=== PATIENT | male | born 1965 | race Caucasian/White ===

== ENCOUNTER 2019-11-01 10:58 | Observation (INO) | payer MEDICARE ==
[~2019-11-01] VITALS: Ht 160 cm; Wt 69.4 kg
[2019-11-01] MEDS ORDERED: GLUCOPHAGE1000 MG PO (11:08)
[2019-11-01] MEDS ORDERED: GLUCOTROL ER2.5 MG (11:08)
[2019-11-01] MEDS ORDERED: HUMALOG 30100 UNITS/ (11:09)
[2019-11-01] MEDS ORDERED: COREG 3.1253.125 MG (11:09)
[2019-11-01 11:33] LABS: BASOPHILS 0.8 % (0-2); EOSINOPHILS 1.1 % (0-7); HEMATOCRIT 45.7 % (42.0-54.0); HEMOGLOBIN 15.5 g/dL (13.5-17.5); IMMATURE GRANULOCYTES 0.3 % (0-5); LYMPHOCYTES 40.6 % (15-50); MCHC 33.9 g/dL (31.0-37.0); MCV 88.6 fL (80.0-100.0); MEAN PLATELET VOLUME 10.2 fL (7.4-10.4); MONOCYTES 6.7 % (2-11); NEUTROPHILS 50.5 % (40-80); PLATELET COUNT 279 10x3/uL (130-400); RBC 5.16 10x6/uL (4.20-6.10); RDW 12.1 % (11.5-14.5); WBC 6.6 10x3/uL (4.8-10.8)
[2019-11-01 11:50] LABS: ALBUMIN 3.9 g/dL (3.4-5.0); ALKALINE PHOSPHATASE 111 U/L (30-120); ALT (SGPT) 31 U/L (10-68); BILIRUBIN - TOTAL 0.35 mg/dL (0.2-1.3); CALCIUM 8.9 mg/dL (8.5-10.1); CARBON DIOXIDE 26.7 mmol/L (21.0-32.0); CHLORIDE - SERUM 95 mmol/L (98-107); CREATININE - SERUM 0.8 mg/dL (0.6-1.3); MAGNESIUM - SERUM 1.6 mg/dL (1.8-2.4); POTASSIUM - SERUM 4.5 mmol/L (3.5-5.1); SODIUM 129 mmol/L (136-145); UREA NITROGEN 11 mg/dL (7-18); eGFR NON AFRICAN AMERICAN > 90 mL/min (90-120)
[2019-11-01 11:53] LABS: CALC OSMOLALITY 282 mosm/kg (275-300)
[2019-11-01 11:56] LABS: GLUCOSE 551 mg/dL (74-106)
[2019-11-01 12:36] LABS: APPEARANCE CLEAR (CLEAR); BILIRUBIN NEGATIVE (NEGATIVE); COLOR STRAW (YELLOW); GLUCOSE 500 mg/dL (NEGATIVE); KETONE NEGATIVE (NEGATIVE); NITRITE NEGATIVE (NEGATIVE); PROTEIN NEGATIVE (NEGATIVE); SPECIFIC GRAVITY 1.005 (1.005-1.020); UROBILINOGEN NORMAL (NORMAL)
--- NOTE | 2019-11-01 12:40 | NUR ---
NS BOLUS STOPPED AT 1240
--- NOTE | 2019-11-01 13:31 | NUR ---
POC CBG 154 AT THIS TIME. PT AMBULATORY TO BATHROOM.
[2019-11-01 13:58] VITALS: BP 106/50
--- NOTE | 2019-11-01 14:57 | MORECARE ---
CASE MANAGEMENT DISCHARGE SUMMARY PATIENT: YURIY MUÑOZ UNIT: [id number] ADM DATE: 11/01/19 AGE: 53 : 67 SEX: M ROOM/BED: D.2234 AUTHOR: JALYN CARVER PHYSICIAN: REFERRING PHYSICIAN: ROHAN NARANJO MD DATE OF SERVICE: 11/01/19 Discharge Plan Patient Name: YURIY MUÑOZ Facility: [facility]:[place] : 1965 Planned Disposition: Home Anticipated Discharge Date: Discharge Date: Expected LOS: Initial Reviewer: [email or web address] Initial Review Date: 11/01/2019 Generated: 11/01/19 3:56 pm Patient Name: YURIY MUÑOZ Page 16341 at 0807 All edits/amendments must be made on the electronic document DICTATION DATE: 11/01/19 1456 RELIGIOUS HEALER: SHASHANK 11/01/19 1456 RPT#: [id number] DC DATE: STATUS: ADM IN [facility] [address] [place] [address] END OF REPORT
--- NOTE | 2019-11-01 15:08 | MORECARE ---
CASE MANAGEMENT DISCHARGE SUMMARY PATIENT: YURIY MUÑOZ UNIT: [id number] ADM DATE: 11/01/19 AGE: 53 : 67 SEX: M ROOM/BED: D.2234 AUTHOR: MEHULDOC PHYSICIAN: REFERRING PHYSICIAN: ROHAN NARANJO MD DATE OF SERVICE: 11/01/19 Discharge Plan Patient Name: YURIY MUÑOZ Facility: [facility]:[place] : 1965 Planned Disposition: Home Anticipated Discharge Date: Discharge Date: Expected LOS: Initial Reviewer: [email or web address] Initial Review Date: 11/01/2019 Generated: 11/01/19 4:08 pm DCP- Discharge Planning Updated by [email or web address]: Aura Avila on 11/01/19 2:[address] Patient Name: YURIY MUÑOZ Admission Status: ER Accout number: [id number] Admission Date: 11-01-2019 : 1965 Admission Diagnosis: Attending: ROHAN NARANJO Current LOS: 1 Anticipated DC Date: Planned Disposition: Home Primary Insurance: [facility] MEDICARE SOLUTIONS Discharge Planning Comments: CM met with patient to discuss discharge planning/needs, he is alone in the room. He states he has no contact lens cutter. He does states that Alejandra from [facility] will take him home, unless it's tomorrow then he will need to have a taxi. He states the [employer] bus does not come to [facility]. He states typically if he has someone from his mcc drive him to the pharmacy and wherever he needs to go or he walks. I asked if his insurance pays for his diabetic meds and he states that they do, but typically he may have a small copay. He states his copay can be as high as 60 dollars a month. I asked if he would be able to get his diabetes medications at discharge with his insurance and he states yes. He states they do pay for Novolog/lantus, victoza, metformin and glipizide. CM will continue to follow and assist with discharge planning/needs. Dry Lumber Grader: Aura Avila DCPIA - Discharge Planning Initial Assessment Updated by [id number]: Aura Avila on 11/01/19 3:00 pm * Is the patient Alert and Oriented? Yes * How many steps to enter\exit or inside your home? Ramp/0 * PCP Dr. Naranjo - first visit will be December 01 * Pharmacy [facility] * Preadmission Environment [facility] * Facility Name [facility] * ADLs Independent * Equipment None * List name and contact numbers for known caregivers / representatives who currently or will assist patient after discharge: Alejandra from [facility] - [phone] * Verbal permission to speak to the caregivers and representatives has been obtained from the patient. Yes * Community resources currently utilized None * Additional services required to return to the preadmission environment? No * Can the patient safely return to the preadmission environment? Yes * Has this patient been hospitalized within the prior 30 days at any hospital? No Last DP export: 11/01/19 1:57 p Patient Name: YURIY MUÑOZ Page 54593 at 1508 All edits/amendments must be made on the electronic document DICTATION DATE: 11/01/19 1508 MACHINE RUG CLEANER: SHASHANK 11/01/19 1508 RPT#: [id number] DC DATE: STATUS: ADM IN [facility] [address] [place] [address] END OF REPORT
--- NOTE | 2019-11-01 15:10 | NUR ---
RECIEVED FROM THE ER. IV TO RIGHT HAND PATENT NO SIGNS OF DISTRESS. DENIES ANY FURTHER NEED AT THIS TIME. CALL LIGHT IN REACH. BED LOW POSITION. NO FAMILY AT BEDSIDE AT THIS TIME
[2019-11-01 19:30] VITALS: BP 100/54
[2019-11-02 00:30] VITALS: BP 98/60
--- NOTE | 2019-11-02 02:36 | NUR ---
PATIENT RESTING QUIETLY. BANDAGE TO LEFT FOOT REMAINS DRY AND INTACT. CALL LIGHT AND URINAL WITHIN REACH. WILL CONTINUE TO MONITOR
--- NOTE | 2019-11-02 02:38 | NUR ---
PATIENT RESTING QUIETLY, NO SIGNS AND SYMPTOMS OF HYPO/HYPERGLYCEMIA. PATIENT ATE A TURKEY SANDWICH EARLIER. WILL CONTINUE TO MONITOR
[2019-11-02 05:00] VITALS: BP 128/78
[2019-11-02 06:19] LABS: BASOPHILS 0.6 % (0-2); EOSINOPHILS 1.4 % (0-7); HEMATOCRIT 42.3 % (42.0-54.0); HEMOGLOBIN 14.4 g/dL (13.5-17.5); IMMATURE GRANULOCYTES 0.4 % (0-5); LYMPHOCYTES 44.9 % (15-50); MCH 30.1 pg (26.0-34.0); MCV 88.5 fL (80.0-100.0); MEAN PLATELET VOLUME 9.8 fL (7.4-10.4); MONOCYTES 4.9 % (2-11); NEUTROPHILS 47.8 % (40-80); PLATELET COUNT 292 10x3/uL (130-400); RBC 4.78 10x6/uL (4.20-6.10); RDW 12.1 % (11.5-14.5)
[2019-11-02 06:57] LABS: ALBUMIN 3.6 g/dL (3.4-5.0); ALKALINE PHOSPHATASE 94 U/L (30-120); ALT (SGPT) 31 U/L (10-68); BILIRUBIN - TOTAL 0.35 mg/dL (0.2-1.3); CALCIUM 8.8 mg/dL (8.5-10.1); CARBON DIOXIDE 27.1 mmol/L (21.0-32.0); CHLORIDE - SERUM 102 mmol/L (98-107); CREATININE - SERUM 0.6 mg/dL (0.6-1.3); POTASSIUM - SERUM 4.1 mmol/L (3.5-5.1); PROTEIN - SERUM 6.8 g/dL (6.4-8.2); SODIUM 136 mmol/L (136-145); eGFR NON AFRICAN AMERICAN > 90 mL/min (90-120)
[2019-11-02 06:58] LABS: CALC OSMOLALITY 279 mosm/kg (275-300); GLUCOSE 206 mg/dL (74-106); UREA NITROGEN 17 mg/dL (7-18)
[2019-11-02 08:37] VITALS: BP 135/99
--- NOTE | 2019-11-02 10:29 | NUR ---
UP IN HALLS, NO DISTRESS NOTED, SL IN PLACE, CONT TO MONITOR SUGARS
[2019-11-02 11:07] VITALS: Ht 160 cm; Wt 69.4 kg
[2019-11-02 13:13] VITALS: BP 126/57
--- NOTE | 2019-11-02 14:30 | NUR ---
IV REMOVED, TIP INTACT, AT BEDSIDE, REVIEWED DC INSTRUCTIONS, VOICED NO CONCERNS, TAKEN FROM HOSPITAL PER W/C
--- NOTE | 2019-11-02 16:07 | NUR ---
PT UP WALKING IN THE HALLS, AGITATED WITH FAMILY TODAY, ENC PT TO REST,
[2019-11-02 16:18] VITALS: BP 130/79
--- NOTE | 2019-11-02 16:30 | MORECARE ---
CASE MANAGEMENT DISCHARGE SUMMARY PATIENT: DUSTY MUÑOZ UNIT: [id number] ADM DATE: 11/01/19 AGE: 53 : 67 SEX: M ROOM/BED: D.2234 AUTHOR: MEHULDOC PHYSICIAN: REFERRING PHYSICIAN: ROHAN NARANJO MD DATE OF SERVICE: 11/02/19 Discharge Plan Patient Name: DUSTY MUÑOZ Facility: [facility]:[place] : 1965 Planned Disposition: Home Anticipated Discharge Date: Discharge Date: Expected LOS: Initial Reviewer: [email or web address] Initial Review Date: 11/01/2019 Generated: 11/02/19 5:30 pm DCP- Discharge Planning Updated by [email or web address]: Aura Avila on 11/01/19 2:[address] Patient Name: DUSTY MUÑOZ Admission Status: ER Accout number: [id number] Admission Date: 11-01-2019 : 1965 Admission Diagnosis: Attending: ROHAN NARANJO Current LOS: 1 Anticipated DC Date: Planned Disposition: Home Primary Insurance: [facility] MEDICARE SOLUTIONS Discharge Planning Comments: CM met with patient to discuss discharge planning/needs, he is alone in the room. He states he has no contact lens inspector. He does states that Alejandra from [facility] will take him home, unless it's tomorrow then he will need to have a taxi. He states the [employer] bus does not come to [facility]. He states typically if he has someone from his prison drive him to the pharmacy and wherever he needs to go or he walks. I asked if his insurance pays for his diabetic meds and he states that they do, but typically he may have a small copay. He states his copay can be as high as 60 dollars a month. I asked if he would be able to get his diabetes medications at discharge with his insurance and he states yes. He states they do pay for Novolog/lantus, victoza, metformin and glipizide. CM will continue to follow and assist with discharge planning/needs. Floor Attendant: Aura Avila DCPIA - Discharge Planning Initial Assessment Updated by [email or web address]: Aura Avila on 11/01/19 3:00 pm * Is the patient Alert and Oriented? Yes * How many steps to enter\exit or inside your home? Ramp/0 * PCP Dr. Naranjo - first visit will be December 01 * Pharmacy [facility] * Preadmission Environment [facility] * Facility Name [facility] * ADLs Independent * Equipment None * List name and contact numbers for known caregivers / representatives who currently or will assist patient after discharge: Alejandra from [facility] - [phone] * Verbal permission to speak to the caregivers and representatives has been obtained from the patient. Yes * Community resources currently utilized None * Additional services required to return to the preadmission environment? No * Can the patient safely return to the preadmission environment? Yes * Has this patient been hospitalized within the prior 30 days at any hospital? No External Providers External Provider: OTHER-OTHER Next Contact Date: Service Request Date: Service Type: Resolution: Reviewer: Comments: Coverage Notice Reviewer: [email or web address] Randy Avila Notice Issued Date-Time: 11/01/2019 15:07 Notice Type: Medicare Outpatient Observation Notice Notice Delivered To: Patient Relationship to Patient: Self Rental Management Trainee Name: Delivery Method: HAND - Hand Delivered Alejandra Days: Prior Verbal Notification: Recipient Understood Notice: Yes Recipient Signature: Yes Med Rec Note Co-signed by Attending: Coverage Notice Comment: YIN delivered, signed, given, copy placed in MR Reviewer: [id number] Randy Aiken Notice Issued Date-Time: 11/02/2019 13:26 Notice Type: Medicare Outpatient Observation Notice Notice Delivered To: Patient Relationship to Patient: Self Rental Management Trainee Name: Dusty Muñoz Delivery Method: HAND - Hand Delivered Alejandra Days: Prior Verbal Notification: Recipient Understood Notice: Yes Recipient Signature: Yes Med Rec Note Co-signed by Attending: Coverage Notice Comment: YIN delivered to and signed by patient. Original given to patient and one placed on the chart. Last DP export: 11/01/19 2:08 p Patient Name: DUSTY MUÑOZ Page 67980 at 1630 All edits/amendments must be made on the electronic document DICTATION DATE: 11/02/19 1630 VENEER PRESS OPERATOR: SHASHANK 11/02/19 1630 RPT#: [id number] DC DATE: STATUS: ADM IN [facility] [address] [facility] [place] [address] END OF REPORT
[2019-11-02] MEDS ORDERED: HUMALOG 30100 UNITS/ SC (19:19)
[2019-11-02] MEDS ORDERED: Lantus Insulin SC (19:20)
[2019-11-02] MEDS ORDERED: LEVEMIR IN100 UNITS/ SC (19:21)
[2019-11-02 19:58] VITALS: BP 137/83
--- NOTE | 2019-11-02 20:12 | NUR ---
PATIENT DISCHARGED HOME VIA TAXI. PERSONAL BELONGINGS AND DISCHARGE INSTRUCTIONS GIVEN WITH PRESCRIPTIONS. STATES UNDERSTANDING.
--- NOTE | 2019-11-03 15:05 | MORECARE ---
CASE MANAGEMENT DISCHARGE SUMMARY PATIENT: DUSTY MUÑOZ UNIT: [id number] ADM DATE: 11/01/19 AGE: 53 : 67 SEX: M ROOM/BED: D.2234 AUTHOR: MEHUL,DOC PHYSICIAN: REFERRING PHYSICIAN: ROHAN NARANJO MD DATE OF SERVICE: 11/03/19 Discharge Plan Patient Name: DUSTY MÑUOZ Facility: [facility]:[place] : 1965 Planned Disposition: Home Anticipated Discharge Date: Discharge Date: 11/02/2019 Expected LOS: Initial Reviewer: [email or web address] Initial Review Date: 11/01/2019 Generated: 11/03/19 4:04 pm DCP- Discharge Planning Updated by [email or web address]: Aura Avila on 11/01/19 2:[address] Patient Name: DUSTY MUÑOZ Admission Status: ER Accout number: [id number] Admission Date: 11-01-2019 : 1965 Admission Diagnosis: Attending: ROHAN NARANJO Current LOS: 1 Anticipated DC Date: Planned Disposition: Home Primary Insurance: [facility] MEDICARE SOLUTIONS Discharge Planning Comments: CM met with patient to discuss discharge planning/needs, he is alone in the room. He states he has no personnel technician. He does states that Alejandra from [facility] will take him home, unless it's tomorrow then he will need to have a taxi. He states the [employer] bus does not come to [facility]. He states typically if he has someone from his custodial drive him to the pharmacy and wherever he needs to go or he walks. I asked if his insurance pays for his diabetic meds and he states that they do, but typically he may have a small copay. He states his copay can be as high as 60 dollars a month. I asked if he would be able to get his diabetes medications at discharge with his insurance and he states yes. He states they do pay for Novolog/lantus, victoza, metformin and glipizide. CM will continue to follow and assist with discharge planning/needs. Stamping Die Maker: Aura Avila DCPIA - Discharge Planning Initial Assessment Updated by [email or web address]: Aura Avila on 11/01/19 3:00 pm * Is the patient Alert and Oriented? Yes * How many steps to enter\exit or inside your home? Ramp/0 * PCP Dr. Naranjo - first visit will be December 01 * Pharmacy [facility] * Preadmission Environment Assisted * Facility [facility] * ADLs Independent * Equipment None * List name and contact numbers for known caregivers / representatives who currently or will assist patient after discharge: Alejandra from [facility] - [phone] * Verbal permission to speak to the caregivers and representatives has been obtained from the patient. Yes * Community resources currently utilized None * Additional services required to return to the preadmission environment? No * Can the patient safely return to the preadmission environment? Yes * Has this patient been hospitalized within the prior 30 days at any hospital? No Coverage Notice Reviewer: [id number] Randy Avila Notice Issued Date-Time: 11/01/2019 15:07 Notice Type: Medicare Outpatient Observation Notice Notice Delivered To: Patient Relationship to Patient: Self Professor Of Oceanography Name: Delivery Method: HAND - Hand Delivered Alejandra Days: Prior Verbal Notification: Recipient Understood Notice: Yes Recipient Signature: Yes Med Rec Note Co-signed by Attending: Coverage Notice Comment: YIN delivered, signed, given, copy placed in MR Reviewer: [id number] - Tiffanie Aiken Notice Issued Date-Time: 11/02/2019 13:26 Notice Type: Medicare Outpatient Observation Notice Notice Delivered To: Patient Relationship to Patient: Self Professor Of Oceanography Name: Dusty Muñoz Delivery Method: HAND - Hand Delivered Alejandra Days: Prior Verbal Notification: Recipient Understood Notice: Yes Recipient Signature: Yes Med Rec Note Co-signed by Attending: Coverage Notice Comment: YIN delivered to and signed by patient. Original given to patient and one placed on the chart. Last DP export: 11/02/19 3:30 p Patient Name: DUSTY MUÑOZ Page 42879 at 1505 All edits/amendments must be made on the electronic document DICTATION DATE: 11/03/19 1504 JOURNEYMAN PIPEFITTER: SHASHANK 11/03/19 1504 RPT#: [id number] DC DATE:11/02/19 STATUS: DIS IN [facility] [id number] [place] [address] END OF REPORT
== END 2019-11-02 20:17 | disposition home or self-care (01) ==
LOC: D.ER 10:58 → OBSVTIME 11:56 → D.MS 11:56 → D.SDCHOLD 15:00 → D.MS 11-02 20:17
PROVIDERS: Emergency Medicine; Family Medicine; ADMIT Legal Medicine; ATTEND Legal Medicine
DX: E11.65 Type 2 diabetes mellitus with hyperglycemia (principal); I10 Essential (primary) hypertension; F17.200 Nicotine dependence, unspecified, uncomplicated; Z91.14 Patient's other noncompliance with medication regimen

== ENCOUNTER 2019-12-10 19:26 | Inpatient (IN) | payer MEDICARE, MEDICAID ==
[~2019-12-10] VITALS: Ht 160 cm; Wt 74.8 kg
[~2019-12-10 19:26] MED LIST: COREG 3.1253.125 MG; GLUCOPHAGE1000 MG PO; GLUCOTROL ER2.5 MG; HUMALOG 30100 UNITS/; HUMALOG 30100 UNITS/ SC; LEVEMIR IN100 UNITS/ SC; Lantus Insulin SC
--- NOTE | 2019-12-10 19:59 | NUR ---
FSBS 397
[2019-12-10 20:13] LABS: NITRITE NEGATIVE (NEGATIVE); SPECIFIC GRAVITY 1.015 (1.005-1.020)
[2019-12-10 20:14] LABS: BILIRUBIN NEGATIVE (NEGATIVE); GLUCOSE 1000 mg/dL (NEGATIVE); KETONE NEGATIVE (NEGATIVE); UROBILINOGEN NORMAL (NORMAL)
[2019-12-10 20:24] LABS: BASOPHILS 0.5 % (0-2); HEMATOCRIT 43.4 % (42.0-54.0); HEMOGLOBIN 14.6 g/dL (13.5-17.5); IMMATURE GRANULOCYTES 0.4 % (0-5); LYMPHOCYTES 39.8 % (15-50); MCH 30.1 pg (26.0-34.0); MCHC 33.6 g/dL (31.0-37.0); MCV 89.5 fL (80.0-100.0); MEAN PLATELET VOLUME 9.1 fL (7.4-10.4); MONOCYTES 7.5 % (2-11); NEUTROPHILS 50.8 % (40-80); PLATELET COUNT 287 10x3/uL (130-400); RBC 4.85 10x6/uL (4.20-6.10); WBC 10.4 10x3/uL (4.8-10.8)
[2019-12-10 20:48] LABS: ALBUMIN 3.6 g/dL (3.4-5.0); ALKALINE PHOSPHATASE 121 U/L (30-120); ALT (SGPT) 28 U/L (10-68); AMYLASE - SERUM 68 U/L (25-115); BILIRUBIN - TOTAL 0.27 mg/dL (0.2-1.3); CALCIUM 8.9 mg/dL (8.5-10.1); CARBON DIOXIDE 25.7 mmol/L (21.0-32.0); CREATININE - SERUM 0.8 mg/dL (0.6-1.3); LIPASE 1000 U/L (73-393); POTASSIUM - SERUM 4.3 mmol/L (3.5-5.1); PROTEIN - SERUM 7.4 g/dL (6.4-8.2); SODIUM 130 mmol/L (136-145); UREA NITROGEN 15 mg/dL (7-18); eGFR NON AFRICAN AMERICAN > 90 mL/min (90-120)
[2019-12-10 20:52] LABS: CALC OSMOLALITY 281 mosm/kg (275-300); CHLORIDE - SERUM 97 mmol/L (98-107); TROPONIN-I < 0.017 ng/mL (0.000-0.060)
[2019-12-10 20:55] LABS: GLUCOSE 457 mg/dL (74-106)
[2019-12-11] VITALS (10 sets, daily range): BP systolic 104–153; BP diastolic 62–92; Ht 160 cm; Wt 74.8 kg
--- NOTE | 2019-12-11 | NUR ---
RECEIVED TO FLOOR VIA WHEELCHAIR, ACCOMPANIED BY ER NURSE. A&O X 4. AMBULATES INDEPENDENTLY. VS STABLE. REPORTS PAIN HAS DECREASED TO 7/10. INFORMED OF NPO STATUS. NO NEEDS VOICED AT THIS TIME, REFUSES SCDs. WILL CONTINUE TO MONITOR.
[2019-12-11 05:08] LABS: APTT 33.9 SECONDS (22.8-39.4); INR 1.03 (0.85-1.17); PROTIME 13.5 SECONDS (11.6-15.0)
[2019-12-11 05:18] LABS: ALBUMIN 3.2 g/dL (3.4-5.0); ALKALINE PHOSPHATASE 99 U/L (30-120); ALT (SGPT) 25 U/L (10-68); AMYLASE - SERUM 66 U/L (25-115); CALC OSMOLALITY 276 mosm/kg (275-300); CARBON DIOXIDE 26.7 mmol/L (21.0-32.0); CHLORIDE - SERUM 101 mmol/L (98-107); CREATININE - SERUM 0.6 mg/dL (0.6-1.3); MAGNESIUM - SERUM 1.6 mg/dL (1.8-2.4); PHOSPHOROUS 3.8 mg/dL (2.5-4.9); POTASSIUM - SERUM 3.9 mmol/L (3.5-5.1); PROTEIN - SERUM 6.5 g/dL (6.4-8.2); SODIUM 135 mmol/L (136-145); UREA NITROGEN 12 mg/dL (7-18); eGFR NON AFRICAN AMERICAN > 90 mL/min (90-120)
[2019-12-11 05:19] LABS: D-DIMER-QUANTITATIVE < 0.27 ug/mLFEU (0.20-0.54)
[2019-12-11 05:26] LABS: GLUCOSE 226 mg/dL (74-106); HEMATOCRIT 41.7 % (42.0-54.0); HEMOGLOBIN 14.3 g/dL (13.5-17.5); LIPASE 741 U/L (73-393); MCH 30.4 pg (26.0-34.0); MCHC 34.3 g/dL (31.0-37.0); MCV 88.7 fL (80.0-100.0); MEAN PLATELET VOLUME 9.1 fL (7.4-10.4); PLATELET COUNT 259 10x3/uL (130-400); RDW 12.1 % (11.5-14.5); WBC 8.2 10x3/uL (4.8-10.8)
--- NOTE | 2019-12-11 07:51 | NUR ---
ASKING FOR A PHONE CHARHOUSE WORKER. DENIES ANY OTHER NEEDS. ALERT, TALKING.
[2019-12-11 08:02] LABS: LYMPHOCYTES 42 % (15-50); MONOCYTES 8 % (2-11); NEUTROPHILS 49 % (40-80); PLATELET ESTIMATE NORMAL
--- NOTE | 2019-12-11 18:07 | NUR ---
HE HAS BEEN WALKING IN THE HALLWAY THIS AFTERNOON. HE SAYS HE NEEDS TO LEAVE TOMORROW- REGARDING HIS NEW APPARTMENT- DOES NOT KNOW IF HE WANTS TO GO THERE OR NOT. HE WAS STARTED ON CLEAR TO FULL DIET TODAY. HE HAS TOLERATED BOTH DIETS.
--- NOTE | 2019-12-11 19:15 | NUR ---
PATIENT AMBULATING AROUND HALLS WITH NO S/S OF DISTRESS. PATIENT DENIES NEEDS AT THIS TIME. WILL CONTINUE TO MONITOR.
--- NOTE | 2019-12-11 19:38 | MORECARE ---
CASE MANAGEMENT DISCHARGE SUMMARY PATIENT: YURIY MUÑOZ UNIT: [id number] ADM DATE: 12/10/19 AGE: 54 : 67 SEX: M ROOM/BED: D.2236 AUTHOR: JALYN CARVER PHYSICIAN: REFERRING PHYSICIAN: DOTTY BATEMAN MD DATE OF SERVICE: 12/11/19 Discharge Plan Patient Name: YURIY MUÑOZ [facility] : 1965 Planned Disposition: Home Anticipated Discharge Date: Discharge Date: Expected LOS: Initial Reviewer: [email or web address] Initial Review Date: 12/10/2019 Generated: 12/11/19 8:38 pm DCPIA - Discharge Planning Initial Assessment Updated by [email or web address]: Sailaja Schuler on 12/11/19 7:36 pm * Is the patient Alert and Oriented? Yes * How many steps to enter\exit or inside your home? ramp * PCP NO PCP * Pharmacy [facility] * Preadmission Environment Intermediate * Facility Name [facility] * ADLs Independent * Other Equipment INSULIN AND NEEDLES * List name and contact numbers for known caregivers / representatives who currently or will assist patient after discharge: NONE * Verbal permission to speak to the caregivers and representatives has been obtained from the patient. N/A * Community resources currently utilized None * Additional services required to return to the preadmission environment? No * Can the patient safely return to the preadmission environment? Yes * Has this patient been hospitalized within the prior 30 days at any hospital? No Patient Name: YURIY MUÑOZ Page 14761 at 1938 All edits/amendments must be made on the electronic document DICTATION DATE: 12/11/191937 FIELD SERVICE ENGINEER: SHASHANK 12/11/191937 RPT#: [id number] DC DATE: STATUS: ADM IN [facility] [address] [place] [address] END OF REPORT
--- NOTE | 2019-12-11 19:45 | MORECARE ---
CASE MANAGEMENT DISCHARGE SUMMARY PATIENT: YURIY MUÑOZ UNIT: [id number] ADM DATE: 12/10/19 AGE: 54 : 67 SEX: M ROOM/BED: D.2236 AUTHOR: MEHUL,DOC PHYSICIAN: REFERRING PHYSICIAN: DOTTY BATEMAN MD DATE OF SERVICE: 12/11/19 Discharge Plan Patient Name: YURIY MUÑOZ Facility: [facility]:[place] : 1965 Planned Disposition: Home Anticipated Discharge Date: Discharge Date: Expected LOS: Initial Reviewer: [email or web address] Initial Review Date: 12/10/2019 Generated: 12/11/19 8:44 pm Comments DCP- Discharge Planning Updated by [id number]: Sailaja Schuler on 12/11/19 6:[address] Patient Name: YURIY MUÑOZ Admission Status: ER Accout number: [id number] Admission Date: 12-10-2019 : 1965 Admission Diagnosis:ACUTE PANCREATITIS WITHOUT NECROSIS OR INFECTION, UNSP Attending: SHAKIRA Current LOS: 1 Anticipated DC Date: Planned Disposition: Home Primary Insurance: [facility] MEDICARE SOLUTIONS Discharge Planning Comments: CM met with patient to complete initial dc planning assessment. CM educated patient on the CM role and verbal consent given by patient to complete assessment. Patient lives at [facility] currently but states he doesn't want to go back there. He states that he is trying to get an apartment and plans to move there very soon. CM discussed availability of home health, rehab services, and medical equipment. Patient states that he can obtain his diabetic medications without any problems. Patient denied known discharge needs at this time. CM will continue to follow and will assist as needed with dc plans/needs. Irrigating Pump Operator: Sailaja Schuler DCPIA - Discharge Planning Initial Assessment Updated by [email or web address]: Sailaja Schuler on 12/11/19 7:36 pm * Is the patient Alert and Oriented? Yes * How many steps to enter\exit or inside your home? ramp * PCP NO PCP * Pharmacy [facility] * Preadmission Environment [facility] * Facility Name [facility] * ADLs Independent * Other Equipment INSULIN AND NEEDLES * List name and contact numbers for known caregivers / representatives who currently or will assist patient after discharge: NONE * Verbal permission to speak to the caregivers and representatives has been obtained from the patient. N/A * Community resources currently utilized None * Additional services required to return to the preadmission environment? No * Can the patient safely return to the preadmission environment? Yes * Has this patient been hospitalized within the prior 30 days at any hospital? No Last DP export: 12/11/19 6:38 pm Patient Name: YURIY MUÑOZ Page 94189 at 1945 All edits/amendments must be made on the electronic document DICTATION DATE: 12/11/191943 GASOLINE POWER SHOVEL OPERATOR: SHASHNAK 12/11/191943 RPT#: [id number] DC DATE: STATUS: ADM IN [facility] [address] [place] [address] END OF REPORT
[2019-12-12 05:35] LABS: HEMATOCRIT 40.2 % (42.0-54.0); HEMOGLOBIN 13.3 g/dL (13.5-17.5); MCHC 33.1 g/dL (31.0-37.0); MCV 90.5 fL (80.0-100.0); MEAN PLATELET VOLUME 9.5 fL (7.4-10.4); PLATELET COUNT 276 10x3/uL (130-400); RBC 4.44 10x6/uL (4.20-6.10); RDW 12.3 % (11.5-14.5); WBC 7.7 10x3/uL (4.8-10.8)
[2019-12-12 05:52] LABS: CALC OSMOLALITY 277 mosm/kg (275-300); CARBON DIOXIDE 24.5 mmol/L (21.0-32.0); CHLORIDE - SERUM 105 mmol/L (98-107); CREATININE - SERUM 0.6 mg/dL (0.6-1.3); GLUCOSE 164 mg/dL (74-106); LIPASE 366 U/L (73-393); MAGNESIUM - SERUM 1.8 mg/dL (1.8-2.4); PHOSPHOROUS 3.8 mg/dL (2.5-4.9); SODIUM 138 mmol/L (136-145); UREA NITROGEN 7 mg/dL (7-18); eGFR NON AFRICAN AMERICAN > 90 mL/min (90-120)
[2019-12-12 06:25] LABS: EOSINOPHILS 4 % (0-7); LYMPHOCYTES 49 % (15-50); MONOCYTES 2 % (2-11); NEUTROPHILS 45 % (40-80); PLATELET ESTIMATE NORMAL
--- NOTE | 2019-12-12 07:05 | NUR ---
ALERT AND ORIENTED. NO C/O PAIN. NO S/S OF ACUTE DISTRESS NOTED. IV TO RIGHT AC, NS INFUSING @ 125ML/HR. SITE PATENT WITHOUT REDNESS OR SWELLING. ON TELEMETRY 58 SB. DENIES ANY NEEDS AT THIS TIME. PATIENT STATES HE WANTS TO GO HOME TODAY. CALL LIGHT IN REACH. WILL CONTINUE TO MONITOR.
[2019-12-12 07:57] VITALS: BP 144/66
[2019-12-12] MEDS ORDERED: Nicoderm [PBKC] TRANSDERM (10:47)
--- NOTE | 2019-12-12 13:22 | NUR ---
DISCHARGED PATIENT HOME. WENT OVER DISCHARGE INSTRUCTIONS WITH PATIENT, VERBALIZED UNDERSTANDING. DISCONTINUED IV, CATHETER TIP INTACT. DENIES ANYTHING FURTHER.
--- NOTE | 2019-12-12 13:43 | MORECARE ---
CASE MANAGEMENT DISCHARGE SUMMARY PATIENT: YURIY MUÑOZ UNIT: [id number] ADM DATE: 12/10/19 AGE: 54 : 67 SEX: M ROOM/BED: D.2236 AUTHOR: MEHUL,DOC PHYSICIAN: REFERRING PHYSICIAN: DOTTY BATEMAN MD DATE OF SERVICE: 12/12/19 Discharge Plan Patient Name: YURIY MUÑOZ Facility: [facility]:[place] : 1965 Planned Disposition: Home Anticipated Discharge Date: Discharge Date: 12/12/2019 Expected LOS: Initial Reviewer: [email or web address] Initial Review Date: 12/10/2019 Generated: 12/12/19 2:42 pm Comments DCP- Discharge Planning Updated by [email or web address]: Sailaja Schuler on 12/12/19 12:[address] Patient Name: YURIY MUÑOZ Encounter No: [id number] : 1965 Primary Insurance: [facility] MEDICARE SOLUTIONS Anticipated DC Date: Planned Disposition: Home External Planned Provider: : DCP follow-up note: Patient and family in agreement with discharge plan. Patient will discharge back to [facility] for now . Case management will follow and assist as needed. Sailaja Schuler DCP- Discharge Planning Updated by [email or web address]: Sailaja Schuler on 12/11/19 6:[address] Patient Name: YURIY MUÑOZ Admission Status: ER Accout number: [id number] Admission Date: 12-10-2019 : 1965 Admission Diagnosis:ACUTE PANCREATITIS WITHOUT NECROSIS OR INFECTION, UNSP Attending: SHAKIRA Current LOS: 1 Anticipated DC Date: Planned Disposition: Home Primary Insurance: [facility] MEDICARE SOLUTIONS Discharge Planning Comments: CM met with patient to complete initial dc planning assessment. CM educated patient on the CM role and verbal consent given by patient to complete assessment. Patient lives at [facility] currently but states he doesn't want to go back there. He states that he is trying to get an apartment and plans to move there very soon. CM discussed availability of home health, rehab services, and medical equipment. Patient states that he can obtain his diabetic medications without any problems. Patient denied known discharge needs at this time. CM will continue to follow and will assist as needed with dc plans/needs. School Lunch Monitor: Sailaja Schuler DCPIA - Discharge Planning Initial Assessment Updated by [id number]: aSilaja Schuler on 12/11/19 7:36 pm * Is the patient Alert and Oriented? Yes * How many steps to enter\exit or inside your home? ramp * PCP NO PCP * Pharmacy [facility] * Preadmission Environment [facility] * Facility Name [facility] * ADLs Independent * Other Equipment INSULIN AND NEEDLES * List name and contact numbers for known caregivers / representatives who currently or will assist patient after discharge: NONE * Verbal permission to speak to the caregivers and representatives has been obtained from the patient. N/A * Community resources currently utilized None * Additional services required to return to the preadmission environment? No * Can the patient safely return to the preadmission environment? Yes * Has this patient been hospitalized within the prior 30 days at any hospital? No Last DP export: 12/11/19 6:45 pm Patient Name: YURIY MUÑOZ Page 82041 at 1343 All edits/amendments must be made on the electronic document DICTATION DATE: 12/12/19 1342 DRY SAND MOLDER: SHASHANK 12/12/19 1342 RPT#: [id number] DC DATE:12/12/19 STATUS: DIS IN [facility] [address] [place] [address] END OF REPORT
== END 2019-12-12 13:23 | disposition home or self-care (01) | DRG 439 ==
LOC: D.ER 19:26 → D.MS 22:11
PROVIDERS: Family Medicine; ADMIT Family Medicine; ATTEND Family Medicine
DX: K85.90 Acute pancreatitis without necrosis or infection, unspecified (principal); F17.203 Nicotine dependence unspecified, with withdrawal; Z91.14 Patient's other noncompliance with medication regimen; E78.5 Hyperlipidemia, unspecified; I25.10 Atherosclerotic heart disease of native coronary artery without angina pectoris; I11.0 Hypertensive heart disease with heart failure; I50.9 Heart failure, unspecified; E11.40 Type 2 diabetes mellitus with diabetic neuropathy, unspecified; G47.33 Obstructive sleep apnea (adult) (pediatric); K21.9 Gastro-esophageal reflux disease without esophagitis; F31.9 Bipolar disorder, unspecified; E11.65 Type 2 diabetes mellitus with hyperglycemia; J44.9 Chronic obstructive pulmonary disease, unspecified; E11.51 Type 2 diabetes mellitus with diabetic peripheral angiopathy without gangrene; R16.0 Hepatomegaly, not elsewhere classified; R91.1 Solitary pulmonary nodule

== ENCOUNTER 2020-04-29 00:22 | Inpatient (IN) | payer MEDICARE, MEDICAID ==
[~2020-04-29] VITALS: Ht 160 cm; Wt 79.4 kg
[2020-04-29] VITALS (9 sets, daily range): BP systolic 89–145; BP diastolic 45–84
--- NOTE | ~2020-04-29 | HEMODYNAMI ---
PATIENT:YURIY MUÑOZ MEDICAL RECORD: [id number] : 67 LOCATION:D.MS Rios2224 ADMISSION DATE: 04/29/20 Generatedon:04/30/202016:44 Patient name: YURIY MUÑOZ Patient #: [id number] SSN: [id number] : 1965 Date of study: 04/30/2020 Page: Of Hemodynamic Procedure Report Patient Data Patient Demographics Procedure consent was obtained First Name: YURIY Gender: Male Last Name: TONI : 1965 Patient #: [id number] Age: 54 year(s) Race: SSN: [id number] Additional ID: [id number] Contact details Address: [address] [place] [address] [address] State: [place] City: [facility] Zip code: [address] Admission Admission Data Admission Date: 04/29/2020 Admission Time: 17:03 Arrival Date: 04/30/2020 Arrival Time: 0:00 Admit Source: Other Insurance Payor: Medicare Room #: D.2224 [facility] #: [id number] Height (in.): 63 BSA: 1.83 (m2) Height (cm.): 160.02 BMI: 31.06 (kg/m2) Weight (lbs.): 175.36 Weight (kg.): 79.54 Lab Results Lab Result Date: 04/30/2020 Lab Result Time: 0:00 Biochemistry Name Units Result Min Max BUN mg/dl 11 --(-*--)-- 7 18 CK-MB ng/ml 1.1 --(-*--)-- 0 3.6 Creatinine mg/dl 0.7 --(*---)-- 0.6 1.3 eGFR ml/min 90 --(*---)-- 90 120 NONAFRICAN Troponin l ng/ml 0.017 --(-*--)-- 0 0.06 CBC Name Units Result Min Max Hematocrit % 40.7 -*(----)-- 42 54 Hemoglobin g/dl 13.9 --(*---)-- 13.5 17.5 Procedure Procedure Types Cath Procedure Diagnostic Procedure [facility] w/Coronaries Sedation Charges Moderate Sedation up to 15 minutes Peripheral Cath Diagnostic Procedure Health Promoter Peripheral Procedures Four Vessel Arteriogram Procedure Description Procedure Date Procedure Date: 04/30/2020 Procedure Start Time: 16:30 Procedure End Time: 16:40 Procedure Staff Name Function Nando Sierra MD Performing Physician Leila Watson RT Monitor Lexus Valdes RT Scrub Shannan Nielson RN Nurse Procedure Data Cath Procedure Fluoroscopy Diagnostic fluoroscopy Total fluoroscopy Time: 2.2 time: 2.2 min min Diagnostic fluoroscopy Total fluoroscopy dose: 585 dose: 585 mGy mGy Contrast Material Contrast Material Type Amount (ml) Isovue 300 99 Entry Location Entry Primary Successful Side Size Upsize Upsize Entry Closure Succes sful Closure Location (Fr) 1 (Fr) 2 (Fr) Remarks Device Remarks Femoral Right 5 Fr Exoseal artery Estimated blood loss: 5 ml Diagnostic catheters Device Type Used For End Catheter Placement MULTIPACK JL 4.0 5Fr Left Coronary catheter Angiography MULTIPACK 3DRC 5Fr Right Coronary catheter Angiography MULTIPACK Pigtail 5 Fr LV Angiography catheter Procedure Complications No complications Procedure Medications Medication Administration Route Dosage Oxygen etCO2 Nasal cannula 2 l/min Lidocaine 2% added to field 20 Heparin Flush Bag added to field 2 bags (1000units/500ml NS) 0.9% NaCl I.V. 100 ml/hr Versed I.V. 2 mg Versed I.V. 2 mg Fentanyl I.V. 50 mcg Fentanyl I.V. 50 mcg Hemodynamics Rest BSA: 1.83 (m2) HGB: 13.9 (g/dl) O2 Consumption: Estimated: 211.4 (ml/min) O2 Con sumption indexed: Estimated:115.52 (ml/min/m) Heart Rate: 61 (bpm) Pressure Samples Time Site Value (mmHg) Purpose Heart Use Rate(bpm) 16:37 LV 92/5,8 Snapshot 76 Gradients Valve Time Site Site Mean SEP/DFP Peak To Heart Use 1 2 (mmHg) (sec/min) Peak Rate (mmHg) (bpm) Aortic 16:37 LV AO 74 Snapshots Pre Cath Intra NCS Post Cath Vital Signs Time Heart Resp SPO2 etCO2 NIBP Rhythm Pain Sedation Rate (ipm) (%) (mmHg) (mmHg) Status Level (bpm) 16:10:22 68 15 99 0 118/72(96) NSR 0 (11) 10(A) , No pain 16:14:36 67 11 100 33.5 118/65(96) NSR 0 (11) 10(A) , No pain 16:18:48 65 12 99 34.3 118/65(82) NSR 0 (11) 10(A) , No pain 16:22:56 72 19 99 38.7 108/77(86) NSR 0 (11) 10(A) , No pain 16:27:08 70 11 98 44 109/62(88) NSR 0 (11) 9(A) , No pain 16:31:20 69 15 97 43.3 106/59(76) NSR 0 (11) 9(A) , No pain 16:35:30 69 14 97 43.3 105/60(78) NSR 0 (11) 9(A) , No pain 16:39:40 72 15 97 42.5 115/69(82) NSR 0 (11) 10(A) , No pain Medications Time Medication Route Dose Verified Delivered Reason Notes Eff ectiveness by by 16:17:10 Oxygen etCO2 2 Nando Chinmayie used for Nasal l/min [facility] campus manager cannula 16:17:18 Lidocaine 2% added 20ml Nando Nando for local to vial [facility] anesthetic field MD JARAMILLO 16:17:25 Heparin Flush added 2 Nando Nando used for Bag to bags [facility] procedure (1000units/500ml field MD JARAMILLO NS) 16:18:16 0.9% NaCl I.V. 100 Nando Buffie Per ml/hr [facility] Chau Nielson RN physician 16:18:24 Versed I.V. 2 mg Nando Chinmayie for RigoChau Nielson RN sedation 16:19:12 Fentanyl I.V. [address] for mcg [address] Chau Nielson RN sedation 16:28:08 Versed I.V. 2 mg [address] for [facility]au Nielson RN sedation 16:28:18 Fentanyl I.V. 50 [address] for mcg [address] Chau Nielson RN sedation Procedure Log Time Note 15:38:13 Informed consent obtained and on chart 15:38:31 Diagnostic Cath Status : Urgent 15:38:47 Arrival Date: 04/30/2020 12:00:00 AM 15:38:47 Admit Source: Other 15:38:50 Insurance Payor : Medicare 15:39:09 Patient Height : 63 inches 15:39:14 Patient Weight : 175.36 lbs 15:40:20 Lab Result : CK-MB 1.1 ng/ml 15:40:20 Lab Result : Creatinine 0.7 mg/dl 15:40:20 Lab Result : BUN 11 mg/dl 15:40:20 Lab Result : Hemoglobin 13.9 g/dl 15:40:20 Lab Result : eGFR NONAFRICAN 90 ml/min 15:40:20 Lab Result : Troponin l 0.017 ng/ml 15:40:20 Lab Result : Hematocrit 40.7 % 15:40:36 Procedure Status Urgent Heart Cath (IP). 15:40:41 Time tracking: Regular hours (M-F 7:00 - 5:00) 15:40:46 Plan of Care:Hemodynamics will remain stable., Cardiac rhythm will remain stable., Comfort level will be maintained., Respiratory function will remain adequate., Patient/ family verbilizes understanding of procedure., Procedure tolerated without complication., Recovers from procedure without complications.. 15:40:49 Lexus Valdes RT(R) sent for patient. Start room use. 15:58:37 Risk of Mortality: 0.1 15:58:40 Risk of blood transfusion: 0.1 15:58:44 Risk of VANESSA: 0.7 15:58:49 1) 90+ Normal kidney functon but urine findings or structural abnormalities or genetic trait point to kidney disease. 15:58:54 Maximum allowable contrast dose (3.7 X eGFR X 0.75)249 ml. 16:00:46 Patient received from Med II to CCL 2 Alert and oriented. Tansferred to table in Supine position. 16:00:48 Warm blankets applied, and danny hugger turned on for patient comfort. 16:00:48 Correct patient and procedure confirmed by team. 16:00:49 ECG and BP/O2 sat monitors applied to patient. 16:09:15 Baseline sample Acquired. 16:09:15 Vital chart was started 16:09:18 Rhythm: sinus rhythm 16:09:21 Full Disclosure recording started 16:09:41 H&P Date Dictated: 04/30/2020 New H&P dictated by physician.. 16:09:43 Pre-procedure instructions explained to patient. 16:09:43 Pre-op teaching completed and patient verbalized understanding. 16:09:48 Family unavailable. 16:09:49 Patient NPO since Midnight. 16:09:51 Is the patient allergic to Iodine/contrast media? No. 16:09:52 Was the patient premedicated? Yes 16:09:56 Is patient on blood thinner?No 16:09:58 Patient diabetic? Yes. 16:13:06 If diabetic: On Metformin? No 16:13:08 Previous problem with sedation/anesthesia? No ? 16:13:10 Snore? Yes 16:13:12 Sleep apnea? No 16:13:13 Deviated septum? No 16:13:14 Opens mouth fully? Yes 16:13:15 Sticks out tongue? Yes 16:13:21 Airway obstruction? Yes COPD 16:13:30 Dentures? No ? 16:13:34 Pre procedure: right dorsailis pedis pulse 2+ Normal; easily identifiable; not easily obliterated 16:13:36 Pre procedure: left dorsailis pedis pulse 2+ Normal; easily identifiable; not easily obliterated 16:13:38 Patient pain scale 0/10 ?. 16:13:52 IV patent on arrival in right forearm with 0.9% NaCl at [facility]. 16:13:55 Lab results completed and on chart. 16:14:07 Right groin area was prepped with chlora-prep and draped in sterile fashion 16:14:08 Alarms reviewed by R. N. 16:14:09 Sharps counted by scrub and verified by R.N. 16:14:11 Physician arrived 16:14:11 --------ALL STOP TIME OUT------ 16:14:11 Final Timeout: patient, procedure, and site verified with staff and physician. All members of the team are in agreement. 16:14:13 Right groin site verified by team. 16:14:16 Fire Safety Assessment: A--An alcohol-based skin anteseptic being used preoperatively., C--Open oxygen or nitrous oxide is being used., D--An ESU, laser, or fiber-optic light is being used. 16:14:19 Physical assessment completed. ASA score P 3 - A patient with severe systemic disease as per Nando Sierra MD. 16:14:25 Sedation plan: IV Moderate Sedation Medication:Versed, Fentanyl 16:15:38 Procedure started. 16:17:10 Oxygen 2 l/min etCO2 Nasal cannula was administered by Shannan Nielson RN; used for procedure; Verbal order read back and verified. 16:17:18 Lidocaine 2% 20ml vial added to field was administered by Nando Sierra MD; for local anesthetic; Verbal order read back and verified. 16:17:25 Heparin Flush Bag (1000units/500ml NS) 2 bags added to field was administered by Nando Sierra MD; used for procedure; Verbal order read back and verified. 16:18:16 0.9% NaCl 100 ml/hr I.V. was administered by Shannan Nielson RN; Per physician; Verbal order read back and verified. 16:18:24 Versed 2 mg I.V. was administered by Shannan Nielson RN; for sedation; Verbal order read back and verified. 16:19:12 Fentanyl 50 mcg I.V. was administered by Shannan Nielson RN; for sedation; Verbal order read back and verified. 16:21:01 Zero performed for pressure channel P1 16:28:08 Versed 2 mg I.V. was administered by Shannan Nielson RN; for sedation; Verbal order read back and verified. 16:28:18 Fentanyl 50 mcg I.V. was administered by Shannan Nielson RN; for sedation; Verbal order read back and verified. 16:30:28 Local anesthetic to right femoral artery with Lidocaine 2% by Nando Sierra MD.INITIAL ACCESS ONLY 16:30:36 A 5 Fr sheath was inserted into the Right Femoral artery 16:31:41 Use device set Femoral Dx 16:31:42 ACIST Syringe (01240) opened to sterile field. 16:31:43 Bag Decanter () opened to sterile field. 16:31:43 Medline Cath Pack ([id number]) opened to sterile field. 16:31:44 ACIST Hand Control (72587) opened to sterile field. 16:31:45 ACIST Manifold (01837) opened to sterile field. 16:31:45 DIAGNOSTIC Multipack 5Fr catheter set ([id number]) opened to sterile field. 16:31:46 Tegaderm 4 x 4 (1626W) opened to sterile field. 16:31:47 SHEATH 5FR [place] ([id number]) opened to sterile field. 16:31:47 EMERALD Guide Wire (908-535) opened to sterile field. 16:31:58 A MULTIPACK JL 4.0 5Fr catheter was advanced over the wire and used for Left Coronary Angiography. 16:32:31 LCA angiography performed. 16:33:26 Catheter removed. 16:33:33 A MULTIPACK 3DRC 5Fr catheter was advanced over the wire and used for Right Coronary Angiography. 16:33:36 RCA angiography performed. 16:33:39 Injector settings: Ml/sec: 3, Volume: 6, 16:33:51 SVG to RCA angiography performed. 16:34:27 SVG to Circ angiography performed. 16:35:32 Bilateral carotid angiography performed. 16:35:49 BLISS to LAD angiography performed. 16:36:02 Injector settings: Ml/sec: 3, Volume: 6, 16:36:25 Catheter removed. 16:36:27 EXOSEAL 5Fr (EX500) opened to sterile field. 16:36:56 A MULTIPACK Pigtail 5 Fr catheter was advanced over the wire and used for LV Angiography. 16:37:43 LV hemodynamics recorded. 16:37:44 LV gram done using WHITEHEAD 16:37:47 Injector settings: Ml/sec: 5, Volume: 15, 16:37:53 EF : 55 % 16:37:57 Sheath removed intact; hemostasis achieved with Exoseal to the Right Femoral artery. 16:38:12 Procedure ended.(Physican Out) 16:38:38 Fluoroscopy time 02.20 minutes. 16:38:42 Fluoroscopy dose: 585 mGy 16:38:42 Flurop Dose total: 585 16:38:46 Dose Area Product 585 mGy/cm. 16:38:50 Contrast amount:Isovue 300 99ml. 16:38:53 Maximum allowable dose exceeded? No. 16:38:53 Sharps counted by scrub and verified by R.N. 16:38:56 Insertion/operative site no bleeding no hematoma. 16:38:59 Post-op/insertion site Right Femoral artery dressed using a 4 x 4 and Tegaderm. 16:39:01 Post Procedure Pulses reassessed and unchanged 16:39:03 Post procedure rhythm: unchanged. 16:39:06 Estimated blood loss: 5 ml 16:39:07 Post procedure instruction explained to patient.Patient verbalizes understanding. 16:39:08 Patient needs reinforcement of post procedure teaching. 16:39:39 Procedure type changed to Cath procedure, Diagnostic procedure, LHC, [facility] w/Coronaries, Sedation Charges, Moderate Sedation up to 15 minutes, Peripheral Cath Diagnostic Procedure, [facility] Peripheral Procedures, Four Vessel Arteriogram 16:39:40 Procedure and supply charges have been captured, reviewed, submitted and are correct. 16:39:44 Procedure Complication : No complications 16:39:47 Vital chart was stopped 16:39:50 [facility] Findings: MVD- MD will discuss options w/ pt 16:39:53 Operative report dictated upon procedure completion. 16:39:53 See physician's report for complete and final results. 16:39:56 Report given to [facility]. 16:39:58 Patient transfered to [facility] with Stretcher. 16:40:01 Procedure ended. 16:40:01 Full Disclosure recording stopped 16:40:05 End room use (Document Last) 16:43:08 End room use (Document Last) 16:43:31 End room use (Document Last) Device Usage Item Name Manufacture Quantity Catalog Hospital Part Current Minimal L ot# / Number Charge Number Stock Stock Serial# Code ACIST Acist 1 05821 010068 352290 118430 20 Syringe Medical (53548) Systems Inc Bag Microtek 1 2001S 050485 93929 913640 5 Decanter Medical Inc. () Medline Medline 1 [id number] 148405 08812 400163 5 Cath Pack ([id number]) ACIST Hand Acist 1 48325 306107 144940 339668 5 Control Medical (24574) Systems Inc ACIST Acist 1 66207 850910 976172 958811 5 Manifold Medical (23613) Systems Inc DIAGNOSTIC Cardinal 1 SW5514 763918 60540 201651 30 Multipack Health 5Fr catheter set (IJ4210) Tegaderm 4 3M 1 1626W 168500 902389 165714 5 x 4 (1626W) SHEATH 5FR Terumo 1 CFG678 450922 958879 490426 5 [place] (VJJ542) EMERALD Cardinal 1 785-455 162898 917082 803432 5 Guide Wire Adreal (083-061) MULTIPACK Cardinal 1 360078 5 JL 4.0 5Fr Health catheter MULTIPACK Cardinal 1 359891 5 3DRC 5Fr Health catheter EXOSEAL 5Fr Cardinal 1 EX500 002558 905269 747235 10 (EX500) Health MULTIPACK Cardinal 1 939269 5 Pigtail 5 Health Fr catheter Signature Audit Mutual Stage Time Signature Unsigned Intra-Procedure 04/30/2020 Leila Watson 4:43:08 PM RT(R) Intra-Procedure 04/30/2020 Shannan Nielson RN 4:43:31 PM Intra-Procedure 04/30/2020 Nando Aviles 4:44:20 PM Chau JARAMILLO [facility] [address] [id number]
[~2020-04-29 00:22] MED LIST changes: +Nicoderm [PBKC] TRANSDERM
[2020-04-29] MEDS ORDERED: FUROSEMIDE10 MG/M1 IV (00:33)
[2020-04-29] MEDS ORDERED: PROZAC10 MG PO (00:33)
[2020-04-29] MEDS ORDERED: COZAAR25 MG PO (00:33)
[2020-04-29] MEDS ORDERED: COREG 3.1253.125 MG PO (00:33)
[2020-04-29] MEDS ORDERED: NEXIUM20 MG PO (00:33)
[2020-04-29] MEDS ORDERED: FLOMAX0.4 MG PO (00:33)
[2020-04-29] MEDS ORDERED: RIOMET500 MG/5 M PO (00:34)
[2020-04-29 00:57] LABS: CALC OSMOLALITY 286 mosm/kg (275-300); CALCIUM 7.7 mg/dL (8.5-10.1); CARBON DIOXIDE 28.5 mmol/L (21.0-32.0); CHLORIDE - SERUM 102 mmol/L (98-107); CREATININE - SERUM 0.9 mg/dL (0.6-1.3); GLUCOSE 366 mg/dL (74-106); POTASSIUM - SERUM 3.9 mmol/L (3.5-5.1); SODIUM 135 mmol/L (136-145); UREA NITROGEN 17 mg/dL (7-18); eGFR NON AFRICAN AMERICAN > 90 mL/min (90-120)
[2020-04-29 01:00] LABS: BASOPHILS 0.6 % (0-2); EOSINOPHILS 1.4 % (0-7); HEMATOCRIT 41.8 % (42.0-54.0); HEMOGLOBIN 14.4 g/dL (13.5-17.5); IMMATURE GRANULOCYTES 0.6 % (0-5); LYMPHOCYTES 48.3 % (15-50); MCH 30.6 pg (26.0-34.0); MCHC 34.4 g/dL (31.0-37.0); MCV 88.9 fL (80.0-100.0); MEAN PLATELET VOLUME 9.3 fL (7.4-10.4); MONOCYTES 6.1 % (2-11); PLATELET COUNT 281 10x3/uL (130-400); RDW 12.4 % (11.5-14.5); WBC 8.8 10x3/uL (4.8-10.8)
[2020-04-29 01:14] LABS: ALBUMIN 3.2 g/dL (3.4-5.0); ALKALINE PHOSPHATASE 96 U/L (30-120); ALT (SGPT) 49 U/L (10-68); BILIRUBIN - TOTAL 0.27 mg/dL (0.2-1.3); C-REACTIVE PROTEIN 0.2 mg/dL (0.0-0.9); CREATINE KINASE 86 UL (21-232); LIPASE 68 U/L (73-393); MAGNESIUM - SERUM 1.7 mg/dL (1.8-2.4); PRO BNP 70 pg/mL (0-125); PROTEIN - SERUM 6.3 g/dL (6.4-8.2); THYROID STIMULATING HORMONE 2.48 uIU/mL (0.36-3.74); TROPONIN-I < 0.017 ng/mL (0.000-0.060)
[2020-04-29 03:15] LABS: BILIRUBIN NEGATIVE (NEGATIVE); GLUCOSE 1000 mg/dL (NEGATIVE); KETONE NEGATIVE (NEGATIVE); NITRITE NEGATIVE (NEGATIVE); UROBILINOGEN NORMAL (NORMAL)
[2020-04-29 03:24] LABS: UDS - AMPHET POSITIVE QUAL (NEGATIVE); UDS - BARB NEGATIVE QUAL (NEGATIVE); UDS - BENZO NEGATIVE QUAL (NEGATIVE); UDS - COCAINE NEGATIVE QUAL (NEGATIVE); UDS - OPIATE NEGATIVE QUAL (NEGATIVE); UDS - PCP NEGATIVE QUAL (NEGATIVE); UDS - THC NEGATIVE QUAL (NEGATIVE)
[2020-04-29 10:32] LABS: BASOPHILS 0.4 % (0-2); EOSINOPHILS 0.8 % (0-7); HEMATOCRIT 40.7 % (42.0-54.0); HEMOGLOBIN 13.9 g/dL (13.5-17.5); IMMATURE GRANULOCYTES 0.3 % (0-5); LYMPHOCYTES 25.3 % (15-50); MCH 30.4 pg (26.0-34.0); MCHC 34.2 g/dL (31.0-37.0); MCV 89.1 fL (80.0-100.0); MEAN PLATELET VOLUME 9.2 fL (7.4-10.4); MONOCYTES 8.3 % (2-11); NEUTROPHILS 64.9 % (40-80); PLATELET COUNT 250 10x3/uL (130-400); RBC 4.57 10x6/uL (4.20-6.10); RDW 12.5 % (11.5-14.5); WBC 9.1 10x3/uL (4.8-10.8)
[2020-04-29 10:57] LABS: ALT (SGPT) 39 U/L (10-68); CALC OSMOLALITY 285 mosm/kg (275-300); CALCIUM 7.6 mg/dL (8.5-10.1); CARBON DIOXIDE 26.5 mmol/L (21.0-32.0); CHLORIDE - SERUM 105 mmol/L (98-107); CHOL - HDL RATIO 5.6 ratio (2.3-4.9); CHOLESTEROL, TOTAL 190 mg/dL (0-200); CKMB 1.1 U/L (0.0-3.6); CREATINE KINASE 105 UL (21-232); CREATININE - SERUM 0.7 mg/dL (0.6-1.3); GLUCOSE 288 mg/dL (74-106); HDL CHOLESTEROL 34 mg/dL (32-96); LDL CHOLESTEROL 107 mg/dL (0-100); LDL-HDL RATIO 3.1 ratio (1.5-3.5); POTASSIUM - SERUM 3.9 mmol/L (3.5-5.1); SODIUM 138 mmol/L (136-145); TRIGLYCERIDE 248 mg/dL (30-200); UREA NITROGEN 11 mg/dL (7-18); eGFR NON AFRICAN AMERICAN > 90 mL/min (90-120)
[2020-04-29 10:58] LABS: TROPONIN-I < 0.017 ng/mL (0.000-0.060)
[2020-04-29 16:47] LABS: CKMB 1.2 U/L (0.0-3.6); CREATINE KINASE 121 UL (21-232); TROPONIN-I < 0.017 ng/mL (0.000-0.060)
--- NOTE | 2020-04-29 20:00 | NUR ---
PT SITTING UP IN BED WITHOUT DISTRESS, AOX4. IV LEFT AC INFUSING NS @ 200. USING URINAL TO VOID. CONSENTS ON CHART OF HEART CATH IN AM. REMINDED PT HE IS NPO AFTER MN, VERBALIZED UNDERSTANDING. STILL NO TELE AVAILABLE, PT ON WAITING LIST. DENIES NEEDS AT THIS TIME. CL IN REACH, WILL CTM
[2020-04-29 22:33] LABS: CKMB 1.2 U/L (0.0-3.6); CREATINE KINASE 121 UL (21-232)
[2020-04-29 22:36] LABS: TROPONIN-I < 0.017 ng/mL (0.000-0.060)
[2020-04-30] VITALS: BP 113/58
[2020-04-30 01:33] VITALS: BMI 31.0
[2020-04-30 04:00] VITALS: BP 139/85
--- NOTE | 2020-04-30 04:18 | NUR ---
PT TOOK HIBICLENS BATH AT THIS TIME, BILAT GROIN AND RIGHT RADIAL SITE CLIPPED. LINENS CHANGED
--- NOTE | 2020-04-30 07:40 | NUR ---
PT REQUESTED PAIN MEDICATION, NO MEDICATION ON NOV. WILL PAGE ULTRASONIC TESTER. CONTINUE WITH PLAN OF CARE
[2020-04-30 08:00] VITALS: BP 154/83
[2020-04-30 10:10] LABS: ALT (SGPT) 36 U/L (10-68); CALCIUM 7.9 mg/dL (8.5-10.1); CARBON DIOXIDE 28.4 mmol/L (21.0-32.0); CHLORIDE - SERUM 108 mmol/L (98-107); CHOL - HDL RATIO 4.3 ratio (2.3-4.9); CHOLESTEROL, TOTAL 175 mg/dL (0-200); CREATININE - SERUM 0.6 mg/dL (0.6-1.3); HDL CHOLESTEROL 41 mg/dL (32-96); LDL CHOLESTEROL 111 mg/dL (0-100); LDL-HDL RATIO 2.7 ratio (1.5-3.5); POTASSIUM - SERUM 3.5 mmol/L (3.5-5.1); SODIUM 139 mmol/L (136-145); TRIGLYCERIDE 115 mg/dL (30-200); eGFR NON AFRICAN AMERICAN > 90 mL/min (90-120)
[2020-04-30 10:11] LABS: CALC OSMOLALITY 273 mosm/kg (275-300); GLUCOSE 83 mg/dL (74-106); UREA NITROGEN 4 mg/dL (7-18)
[2020-04-30 10:23] LABS: BASOPHILS 0.3 % (0-2); EOSINOPHILS 0.6 % (0-7); HEMATOCRIT 38.5 % (42.0-54.0); IMMATURE GRANULOCYTES 0.3 % (0-5); LYMPHOCYTES 29.1 % (15-50); MCHC 33.8 g/dL (31.0-37.0); MCV 88.9 fL (80.0-100.0); MEAN PLATELET VOLUME 9.5 fL (7.4-10.4); MONOCYTES 8.9 % (2-11); NEUTROPHILS 60.8 % (40-80); PLATELET COUNT 249 10x3/uL (130-400); RBC 4.33 10x6/uL (4.20-6.10); RDW 12.3 % (11.5-14.5); WBC 7.8 10x3/uL (4.8-10.8)
[2020-04-30 12:00] VITALS: BP 115/58
[2020-04-30 12:53] VITALS: Ht 160 cm; Wt 79.4 kg
[2020-04-30 15:26] VITALS: BP 112/63
--- NOTE | 2020-04-30 17:15 | NUR ---
RECIEVED FROM CHIEF DESIGN BRANCH. VS WNL. RIGHT GROIN STABLE WITHOUT BLEEDING OR HEMATOMA NOTED. WILL MONITOR.
--- NOTE | 2020-04-30 19:30 | NUR ---
RECEIVED BEDSIDE REPORT. ROUNDING COMPLETE. PATIENT IS ALERT AND ORIENTED, RESTING COMFORTABLY IN BED. RESPIRATIONS ARE EVEN AND UNLABORED. NO S/S OF DISTRESS. NO C/O PAIN. RIGHT GROIN ASSESSED INSERTION SITE IS SOFT, NO SIGN OF BLEEDING, BRUISING OR HEMATOMA. CALL LIGHT WITHIN REACH. WILL CPOC
[2020-04-30 20:00] VITALS: BP 130/78
[2020-05-01] VITALS: BP 146/71
[2020-05-01 04:00] VITALS: BP 150/79
[2020-05-01 06:51] LABS: BASOPHILS 0.3 % (0-2); EOSINOPHILS 1.2 % (0-7); HEMATOCRIT 38.1 % (42.0-54.0); HEMOGLOBIN 12.8 g/dL (13.5-17.5); IMMATURE GRANULOCYTES 0.3 % (0-5); LYMPHOCYTES 38.6 % (15-50); MCHC 33.6 g/dL (31.0-37.0); MCV 89.2 fL (80.0-100.0); MEAN PLATELET VOLUME 9.6 fL (7.4-10.4); MONOCYTES 7.2 % (2-11); NEUTROPHILS 52.4 % (40-80); PLATELET COUNT 260 10x3/uL (130-400); RBC 4.27 10x6/uL (4.20-6.10); RDW 12.8 % (11.5-14.5); WBC 8.7 10x3/uL (4.8-10.8)
[2020-05-01 07:12] LABS: ALBUMIN 2.9 g/dL (3.4-5.0); ALKALINE PHOSPHATASE 97 U/L (30-120); ALT (SGPT) 42 U/L (10-68); BILIRUBIN - TOTAL 0.31 mg/dL (0.2-1.3); CALCIUM 8.1 mg/dL (8.5-10.1); CARBON DIOXIDE 25.3 mmol/L (21.0-32.0); CHLORIDE - SERUM 107 mmol/L (98-107); CREATININE - SERUM 0.6 mg/dL (0.6-1.3); GLUCOSE 121 mg/dL (74-106); POTASSIUM - SERUM 3.2 mmol/L (3.5-5.1); PROTEIN - SERUM 6.1 g/dL (6.4-8.2); SODIUM 139 mmol/L (136-145); eGFR NON AFRICAN AMERICAN > 90 mL/min (90-120)
[2020-05-01 07:14] LABS: CALC OSMOLALITY 277 mosm/kg (275-300); UREA NITROGEN 9 mg/dL (7-18)
[2020-05-01 08:01] VITALS: BP 140/63
--- NOTE | 2020-05-01 08:19 | OP ---
PATIENT NAME: YURIY MUÑOZ MEDICAL RECORD: [id number] :67 LOCATION:D.M2 D.7 ADMISSION DATE:04/29/20 SURGEON: DOTTY FLORES MD DATE OF OPERATION: 04/30/2020 PROCEDURE: Left heart cath plus 4-vessel arteriography, right femoral artery approach. CATHETERS: A 5-Kittitian sheath, 5/4 Vielka, 5/4 pig. The procedure was well tolerated. The patient returned to the abad. Sheath removed. ExoSeal device placed. FINDINGS: FOUR-VESSEL ARTERIOGRAPHY: Performed secondary to syncope with visual changes consistent with amaurosis fugax symptomology. 1. The right common carotid was selectively engaged. This shows luminal wall vessel free of disease. The right external carotid has about a 50% stenosis. The right internal carotid is smooth walled, free of disease. The catheter was then brought proximally to the left internal carotid, which was selectively engaged. The left common carotid was selectively engaged and this shows luminal wall disease with no significant stenosis. The left internal carotid is smooth-walled vessel, free of disease. Left external carotid is smooth walled, free of disease. 2. The LV&C was performed. Left ventriculography in 30-degree WHITEHEAD view, normal wall motion, normal systolic function. CORONARY ANATOMY: LEFT MAIN: Free of disease. LAD: Fills for a short period of time and is totally occluded. CIRCUMFLEX: Again fills for a short period of time and is totally occluded. RIGHT CORONARY ARTERY: Totally occluded in its distal two-thirds. BYPASS GRAFTS: BLISS to LAD is widely patent throughout its course without evidence of post-anastomotic stenosis. Saphenous vein graft to the circumflex system is widely patent throughout its course. No evidence of post-anastomotic stenosis. Saphenous graft to the right again is widely patent. IMPRESSION: 1. No significant severe vascular disease. 2. LV function remains normal. 3. Widely patent grafts to all major epicardial territories. NTS:[id number] Voice Confirmation ID: [id number] DOCUMENT ID: [id number] DOTTY FLORES MD at 0819 CC: [id number] DICTATION DATE: 04/30/20 1650 MANAGER MACHINE: 04/30/20 2228 [address]M [id number] [place] [address]
[2020-05-01] MEDS ORDERED: NICODERM CQ1 EAC3 TRANSDERM (08:42)
--- NOTE | 2020-05-01 12:51 | NUR ---
PT DISCHARGED HOME VIA WHEELCHAIR WITH FAMILY. PIV REMOVED WITH CATHETER TIP FULLY INTACT. TELEMETRY REMOVED AND RETURNED. PT SIGNED PROPER DISCHARGE INSTRUCTIONS AND REMOVED ALL VALUABLES FROM THE ROOM.
== END 2020-05-01 12:52 | disposition home or self-care (01) | DRG 287 ==
LOC: D.ER 00:22 → D.MS 05:21 → OBSVTIME 05:21 → D.MS 05:21 → D.M2 17:03 → D.MS 17:03 → D.M2 04-30 17:09
PROVIDERS: Family Medicine; Family Medicine Adult Medicine; Internal Medicine Interventional Cardiology; ADMIT Family Medicine; ATTEND Family Medicine
PROC: B2151ZZ Fluoroscopy of Left Heart using Low Osmolar Contrast (ICD-10-PCS; 2020-04-30)
PROC: 4A023N7 Measurement of Cardiac Sampling and Pressure, Left Heart, Percutaneous Approach (ICD-10-PCS; 2020-04-30)
PROC: B3151ZZ Fluoroscopy of Bilateral Common Carotid Arteries using Low Osmolar Contrast (ICD-10-PCS; 2020-04-30)
PROC: B3181ZZ Fluoroscopy of Bilateral Internal Carotid Arteries using Low Osmolar Contrast (ICD-10-PCS; 2020-04-30)
PROC: B31C1ZZ Fluoroscopy of Bilateral External Carotid Arteries using Low Osmolar Contrast (ICD-10-PCS; 2020-04-30)
PROC: B2131ZZ Fluoroscopy of Multiple Coronary Artery Bypass Grafts using Low Osmolar Contrast (ICD-10-PCS; principal; 2020-04-30 15:00)
PROC: B2111ZZ Fluoroscopy of Multiple Coronary Arteries using Low Osmolar Contrast (ICD-10-PCS; 2020-04-30 15:00)
DX: R55 Syncope and collapse (principal); F17.203 Nicotine dependence unspecified, with withdrawal; E87.1 Hypo-osmolality and hyponatremia; F31.30 Bipolar disorder, current episode depressed, mild or moderate severity, unspecified; G45.3 Amaurosis fugax; M25.572 Pain in left ankle and joints of left foot; W19.XXXA Unspecified fall, initial encounter; E11.65 Type 2 diabetes mellitus with hyperglycemia; E11.40 Type 2 diabetes mellitus with diabetic neuropathy, unspecified; D64.9 Anemia, unspecified; I11.0 Hypertensive heart disease with heart failure; I50.9 Heart failure, unspecified; I25.119 Atherosclerotic heart disease of native coronary artery with unspecified angina pectoris; J43.9 Emphysema, unspecified; G47.33 Obstructive sleep apnea (adult) (pediatric); K21.9 Gastro-esophageal reflux disease without esophagitis; K59.09 Other constipation; F15.10 Other stimulant abuse, uncomplicated